=== PATIENT | female | born 1935 | race Caucasian/White ===

== ENCOUNTER 2017-05-04 09:29 | Inpatient (IN) | payer OTHER, BC ==
[2017-04-16 12:25] VITALS: BMI 48.0
--- NOTE | 2017-04-16 13:40 | PAT Medication Instructions ---
Service Date Apr 16, 2017. Current Home Medication List Albuterol Sulf (Proventil 0.083% 2.5MG/3ML), 2.5 MG INH QID PRN for PRN Allopurinol (Zyloprim), 100 MG PO QAM Alprazolam (Xanax), 0.5 MG PO HS Apixaban (Eliquis), 2.5 MG PO BID Aspirin (Aspirin Ec), 81 MG PO QPM Cetirizine (Zyrtec), 10 MG PO QAM Docusate Sodium (Docusate Sodium), 1 CAP PO BID Ergocalciferol (Vitamin D 20544 Unit), 50,000 UNIT PO WK Fluticasone Prop/Salmeterol (Advair Diskus 250/50 60 Dose), 1 PUFF INH QPM Hydrocodone/Acetaminophen 7.5MG/325MG ([place] 7.5MG/325MG), 1 TAB PO BID PRN for Pain Losartan Potassium (Cozaar), 100 MG PO QAM Magnesium Hydroxide (Quinones Milk Of Magnesia), 30 ML PO PRN Magnesium Oxide (Mag-Ox), 400 MG PO BID Meclizine HCl (Meclizine HCl), 1 TAB PO QID PRN for RN Multivitamin (Multivitamin), 1 TAB PO QAM Omeprazole (Prilosec), 20 MG PO PRN [Poly Iron Forte], 1 TAB PO BID Medication Instructions For Your Scheduled Surgery Apixaban (Eliquis), 2.5 MG PO BID (patient will check with family doctor for instructions- let family doctor know medication needs held 3 days in order for spinal anesthesia) Ergocalciferol (Vitamin D 03196 Unit), 50,000 UNIT PO WK (continue as usual on Mondays) Meclizine HCl (Meclizine HCl), 1 TAB PO QID PRN for RN (not taking currently) - Hold the following medications the morning of surgery: Multivitamin (Multivitamin), 1 TAB PO QAM Magnesium Oxide (Mag-Ox), 400 MG PO BID Magnesium Hydroxide (Quinones Milk Of Magnesia), 30 ML PO PRN Losartan Potassium (Cozaar), 100 MG PO QAM Docusate Sodium (Docusate Sodium), 1 CAP PO BID Cetirizine (Zyrtec), 10 MG PO QAM Poly Iron Forte 1 TAB PO BID - Take the following medications the morning of surgery with a sip of water: Omeprazole (Prilosec), 20 MG PO PRN Hydrocodone/Acetaminophen 7.5MG/325MG ([place] 7.5MG/325MG), 1 TAB PO BID PRN for Pain (can take up to four hours prior to surgery if needed) Allopurinol (Zyloprim), 100 MG PO QAM Albuterol Sulf (Proventil 0.083% 2.5MG/3ML), 2.5 MG INH QID PRN for PRN (if needed) - Take the following medications as scheduled the night before surgery: Magnesium Oxide (Mag-Ox), 400 MG PO BID Magnesium Hydroxide (Quinones Milk Of Magnesia), 30 ML PO PRN Hydrocodone/Acetaminophen 7.5MG/325MG ([place] 7.5MG/325MG), 1 TAB PO BID PRN for Pain Fluticasone Prop/Salmeterol (Advair Diskus 250/50 60 Dose), 1 PUFF INH QPM Docusate Sodium (Docusate Sodium), 1 CAP PO BID Aspirin (Aspirin Ec), 81 MG PO QPM Alprazolam (Xanax), 0.5 MG PO HS Albuterol Sulf (Proventil 0.083% 2.5MG/3ML), 2.5 MG INH QID PRN for PRN Poly Iron Forte 1 TAB PO BID If you have any questions please call us at [phone] or [phone] ( Lucy) or [phone]
[2017-04-16 14:42] LABS: BASO % 0.3 %; BASO ABS # 0.03 K/uL (0-0.2); COMPLETE YES; EOS % 4.3 %; HEMATOCRIT 35.8 % (37-47); IG% 0.4 %; LYMPH % 24.3 %; LYMPH ABS # 2.18 K/uL (1.2-3.4); MEAN CORPUSCULAR HGB CONC 30.4 g/dl (32-36); MEAN PLATELET VOLUME 10.2 fL (7.4-10.4); MONO % 6.9 %; NEUT % 63.8 %; PLATELET COUNT 328 K/uL (130-400); RED BLOOD COUNT 3.89 M/uL (4.2-5.4); WHITE BLOOD COUNT 8.97 K/uL (4.8-10.8)
[2017-04-16 14:51] LABS: PARTIAL THROMBOPLASTIN RATIO 1.1; PROTHROMBIN TIME (PATIENT) 10.6 SECONDS (9.0-12.0)
[2017-04-16 15:00] LABS: BUN/CREATININE RATIO 31.7 (10-20); CREATININE 1.5 mg/dl (0.60-1.20); POTASSIUM 5.3 mmol/L (3.5-5.1)
[2017-04-16 15:06] LABS: CALCIUM 10.5 mg/dl (8.5-10.1)
[2017-04-16 15:21] LABS: URINE APPEARANCE CLEAR (CLEAR); URINE BILIRUBIN NEG (NEG); URINE COLOR YELLOW; URINE EPITHELIAL CELL AUTO 20-30 /lpf (0-5); URINE NITRITE NEG (NEG); URINE PH 5.5 (4.5-7.5); URINE SPECIFIC GRAVITY 1.016 (1.000-1.030); UROBILINOGEN NEG (NEG)
[2017-04-16 15:33] LABS: MANUAL MICROSCOPIC REQUIRED? NO; REVIEW REQ? NO
[2017-04-16 15:44] LABS: ESTIMATED AVERAGE GLUCOSE 120 mg/dl; HA1C FLAG Normal (Normal)
--- NOTE | 2017-04-29 11:52 | History and Physical ---
History & Physical Date & Time of Service: Apr 29, 2017 at 11:47 Chief Complaint: Left Knee Osteoarthritis Primary Care Physician: Gadiel Tatum M.D. History of Present Illness Source: patient left knee pain Ms Evans is a 81 year old female who is here for a follow up of left knee pain. She presents with pain, crepitus, swelling, decreased rom, stiffness and weakness on the left side. She states that the symptoms have been chronic non- traumatic. Patient is here today for left ankle wound check and discuss possible left knee TKA. The symptoms occur constantly with intermittent worsening. The problem is worse. Currently the patient states that the symptoms are moderate-severe. The pain is described as aching, discomforting, sharp, shooting and throbbing. The symptoms occur continuously. She rates her current pain as 10/10. The symptoms are aggravated by ascending stairs, daily activities , descending stairs, first steps while awake, movement, repetitive activities, sleeping in any position and walking. [place] states that the symptoms are relieved by no specific activity. In addition to left knee pain the patient is also experiencing decreased mobility, difficulty bending, difficulty going to sleep, nighttime awakening, pain, stiffness, tenderness and weakness. Pertinent negatives include chills and fever. The patient has had a previous x-ray. Prior pain medications include [place] 7.5-325mg. Patient is unable to take NSAIDS d/t being on Eliquis daily. Patient came into with a wheelchair. Past Medical/Surgical History Past Medical History 1. CAD- h/o RI 1998 2. Hypertension 3. h/o PE 4. COPD 5. Sleep Apnea 6. Diabetes 7. GERD 8. Obesity. Past Surgical History 1. Appendectomy 2. Tonsilectomy 3. Right TKA 4. Thyroidectomy 5. Hernia Repair 6. Tubal ligation 7. Hysterectomy Social History Smoking Status: Former Smoker Allergies Coded Allergies: Glimepiride (Unverified Allergy, Unknown, ITCHY, 04/16/17) Home Medications Scheduled Allopurinol (Zyloprim), 100 MG PO QAM Alprazolam (Xanax), 0.5 MG PO HS Apixaban (Eliquis), 2.5 MG PO BID Aspirin (Aspirin Ec), 81 MG PO QPM Cetirizine (Zyrtec), 10 MG PO QAM Docusate Sodium (Docusate Sodium), 1 CAP PO BID Ergocalciferol (Vitamin D 42422 Unit), 50,000 UNIT PO WK Fluticasone Prop/Salmeterol (Advair Diskus 250/50 60 Dose), 1 PUFF INH QPM Losartan Potassium (Cozaar), 100 MG PO QAM Magnesium Hydroxide (Quinones Milk Of Magnesia), 30 ML PO PRN Magnesium Oxide (Mag-Ox), 400 MG PO BID Multivitamin (Multivitamin), 1 TAB PO QAM Omeprazole (Prilosec), 20 MG PO PRN [Poly Iron Forte], 1 TAB PO BID Scheduled PRN Albuterol Sulf (Proventil 0.083% 2.5MG/3ML), 2.5 MG INH QID PRN for PRN Hydrocodone/Acetaminophen 7.5MG/325MG ([place] 7.5MG/325MG), 1 TAB PO BID PRN for Pain Meclizine HCl (Meclizine HCl), 1 TAB PO QID PRN for semiconductor lab technician of Systems Constitutional: No fever, No chills, No sweats, No weight loss, No weakness, No fatigue, No problem reported Eyes: No worsening of vision, No eye pain, No redness, No discharge, No diplopia, No problem reported ENT: No hearing loss, No unusual epistaxis, No nasal symptoms, No sore throat, No tinnitus, No dental problems, No trouble swallowing, No problem reported Respiratory: No cough, No sputum Cardiovascular: No chest pain, No orthopnea, No PND, No edema, No claudication , No palpitations, No problem reported Abdomen: No pain, No nausea, No vomiting, No diarrhea, No constipation, No GI bleeding, No problem reported Physical Exam General Appearance: WD/WN, no apparent distress Head: normocephalic, atraumatic Eyes: normal inspection, PERRL ENT: normal ENT inspection, hearing grossly normal Neck: supple Respiratory/Chest: chest non-tender, lungs clear, normal breath sounds Cardiovascular: regular rate, rhythm, no edema Abdomen/GI: normal bowel sounds, non tender, soft Skin: normal color, warm/dry Left Knee Exam Knee ROM L * Active ROM - Flexion: 110 degrees, Extension: 3 degrees, Factors: normal, Description: active pain free range of motion. Passive ROM - Flexion: 115 degrees, Extension: 3 degrees, Factors: normal, Description: passive pain free range of motion. Knee ROM R * Active ROM - Flexion: 135 degrees, Extension: 0 degrees, Factors: normal, Description: active pain free range of motion. Passive ROM - Flexion: 135 degrees, Extension: 0 degrees, Factors: normal, Description: passive pain free range of motion. Strength LE Normal Strength Description - Normal lower extremity: Bilateral. Knee * Gait: Antalgic. Alignment - Left: varus, Clinical. Ecchymosis - Left: negative. Effusion - Left: mild. Swelling - Left: mild. Flexibility - Left: normal. Maximum tenderness - Left: Medial Joint Line. Patella exam - Crepitation - Left: negative. Patella position - Left: neutral. Tilt - Left: equal. Vanessa's - lateral - Left: Positive. [facility] - medial - Left: Positive. Knee Comments The patient has no calf tenderness. Knee Normal Inspection - Atrophy - Left: Absent. Skin - Left: Normal. Patella exam - Apprehension - Left: Negative. Q-angle - Left: Normal. Sergio's - Left: Negative. Posterior drawer - Left: Negative. Anterior drawer - Left: Negative. Valgus stress - Left: Negative. Varus stress - Left: Negative. Extensor lag - Left: Normal. Neurovascular LE Normal Neurovascular examination including reflexes, sensation , and pulses is within normal limits. Left Knee Xray: Xrays reviewed of the left knee showing findings consistent with degenerative joint disease including joint space narrowing, subchondral sclerosis and peripheral osteophyte formation. no acute bony pathology, overall varus alignment. Impression: degenerative joint disease of the left knee with no acute bony pathology noted. Diagnostics Diagnostic Radiology Xrays reviewed of the left knee showing findings consistent with degenerative joint disease including joint space narrowing, subchondral sclerosis and peripheral osteophyte formation. no acute bony pathology, overall varus alignment. Impression: degenerative joint disease of the left knee with no acute bony pathology noted. Impression Assessment and Plan Left Knee DJD Further care discussed with patient and at this point in time has failed conservative measures and would like to proceed with a left total knee replacement. Plan on discharge will be to consider rehab stay. Patient will have follow up appointment in our office two weeks post op for staple/suture removal and re-evaluation. Patient otherwise has no other questions or concerns. Advanced Directives Existing Living Will: Yes Existing Power of Launderer Hand: Yes
[~2017-05-04] VITALS: Ht 152.4 cm; Wt 112.2 kg
[2017-05-04] VITALS (10 sets, daily range): BP systolic 135–170; BP diastolic 67–86; PULSE 65–100; TEMP 36.4–36.7; O2SAT 93–99; Ht 152.4 cm; Wt 112.2 kg
[2017-05-04] MEDS: TRANEXAMIC ACID INJ 1,000 MG in SODIUM CHLORIDE 0.9% 100ML 100 ML IV SCH ×2 (06:30→10:23)
--- NOTE | 2017-05-04 07:59 | History & Physical Bridge Note ---
H&P Re-Evaluation Bridge Note: I have examined the patient, reviewed the History & Physical and in the interval since the performance of the History & Physical I have noted the following changes of clinical significance: No changes noted
[~2017-05-04 09:29] MED LIST: ACETAMINOPHEN 500 MG TAB PO SCH; ADVIN25/60 INH; ALBINS/ INH; ALLO100T PO; ALPR-411 PO; APIX1TAB PO; ASPI81TA28 PO; BUPIVACAINE 0.25% 30 ML VIAL ONE; BUPIVACAINE 0.5 % 5 MG/1 ML PF 10ML VIAL ONE; CEFAZOLIN 2000 MG/60 ML D5W 60 ML IV SCH; CETI10TA84 PO; CeleBREX 200 MG CAP PO SCH; DEXAMETHASONE 4 MG TAB PO SCH; DOCU100C31 PO; ERGO500037 PO; FAMOTIDINE 20 MG TAB PO SCH; FENTANYL CITRATE INJ 50 MCG/1 ML 2 ML VIAL ONE; GABAPENTIN 300 MG CAP PO SCH; HYDR-3983 PO; LACTATED RINGER'S 1000ML 1,000 ML IV SCH; LOSA100T65 PO; MAGN400T6 PO; MAGNSUS PO; MECL1TAB40 PO; METOCLOPRAMIDE HCL 10 MG TAB PO SCH; MIDAZOLAM HCL 1 MG/ML 2ML VIAL ONE; MULT-506 PO; POLY IRON FORTE PO; PRLSR20 PO; ROPIVACAINE 5MG/ML 30 ML 150 MG, BUPIVACAINE/EPINEPHR 0.5% MPF 30 ML, KETOROLAC TROMETH... INFIL SCH
[2017-05-04] MEDS ORDERED: LACTATED RINGER'S 1000ML 1,000 ML IV PRN (09:55)
[2017-05-04] MEDS ORDERED: FENTANYL CITRATE INJ 50 MCG/1 ML 2 ML VIAL IV PRN (10:00)
[2017-05-04] MEDS ORDERED: ONDANSETRON INJ 2 MG/ML 2 ML VIAL IV PRN ×2 (10:00→12:30)
[2017-05-04] MEDS ORDERED: ORTHO JOINT ANESTHETIC ONE (10:06)
[2017-05-04] MEDS ORDERED: BACITRACIN 50000 UNIT VIAL ONE (10:06)
[2017-05-04] MEDS ORDERED: POVIDONE-IODINE OP SOLN 30 ML BTL ONE (10:06)
[2017-05-04] MEDS ORDERED: EpHEDrine SULFATE 50MG/5ML SYR ONE (11:10)
--- NOTE | 2017-05-04 11:45 | [facility] Post Operative Brief Note ---
Immediate Operative Summary Operative Date May 04, 2017. Pre-Operative Diagnosis Left knee degenerative joint disease Post-Operative Diagnosis Left knee degenerative joint disease Procedure(s) Performed Left total knee arthroplasty Surgeon Dr. Yadav Manager Coding Surgeon(s) Tobias Sumner PA-C Estimated Blood Loss 5cc Findings severe djd lt knee Specimens A. Left knee bone and tissue Complication(s) None Disposition Recovery Room / PACU
--- NOTE | 2017-05-04 11:58 | OPERATIVE REPORT ---
DATE OF OPERATION: 05/04/2017 PREOPERATIVE DIAGNOSIS: Severe end-stage tricompartmental degenerative joint disease, left knee. POSTOPERATIVE DIAGNOSIS: Severe end-stage tricompartmental degenerative joint disease, left knee. PROCEDURE: Left total knee arthroplasty utilizing Isidro & Nephew Journey II patient-matched total knee arthroplasty, size 4 femur, 3 tibia, 15 constrained poly, 29 oval patella. SURGEON: Dr. Yadav. AERIAL PHOTOGRAPH INTERPRETER: NOEMI Gil, who was necessary for prepping, draping, retraction, wound closure of deep fascia, subcu and skin, and was necessary for the case. ESTIMATED BLOOD LOSS: 5 mL COMPLICATIONS: None. TOURNIQUET TIME: 45 minutes. HISTORY: The patient presents as a pleasant 81-year-old white female with complaints of severe end-stage DJD about her left knee. She has previously undergone right total knee arthroplasty. She presents with severe endstage DJD and varus alignment of her left knee for left total knee arthroplasty. Thorough discussion regarding risks and complications was undertaken. The patient elects to proceed forward with left total knee arthroplasty after failing all other attempts at conservative management including injections, bracing, anti-inflammatories, and therapy. OPERATION AND FINDINGS: PROCEDURE: The patient was properly prepped and draped in supine position for total knee arthroplasty after identifying the appropriate surgical site. An anterior midline incision was made through the subcutaneous tissues down to the region of the extensor mechanism. A medial parapatellar incision was subsequently made. Meticulous hemostasis was obtained and performed at all times. The patella having been subluxed lateralward, medial and lateral meniscal remnants were excised. The patellar cut was then initially made and was sized to the appropriate size. After subluxing the tibia forward the appropriate meniscal fragments having been removed the distal femur was then cut first utilizing a Isidro and Nephew block. The distal femoral cuts and chamfer cuts were all made under direct visualization and the proximal tibial osteotomy cut was also made utilizing Isidro and Nephew blocks and checked with an extramedullary guide. The appropriate trial components on the femur and tibia were placed. Appropriate trial spacers were used to check flexion and extension gaps. With flexion and extension gaps being equal, the components were then subsequently after thorough irrigation and debridement lavage components were then subsequently cemented in the following order: femur, tibia and patella. Exparel was used for intraoperative anesthesia, the medial parapatellar incision was closed utilizing #1 Vicryl, subQ was closed with 2-0 Vicryl, skin was closed with skin clips. A sterile compression dressing was placed. The patient was taken to recovery room in stable condition. Due to the complex nature of the procedure, the entire surgery was performed with the operational assistance of NOEMI Gil. The assistant sales center manager, under direct supervision, was involved in the actual performance of all aspects of the surgical procedure including hemostasis, tissue retraction and incision, instrument management, patient positioning, and wound closure. GURWINDER
[2017-05-04] MEDS ORDERED: SODIUM CHLORIDE 0.9% 1000ML 1,000 ML IV SCH (12:26)
[2017-05-04] MEDS ORDERED: ALBUTEROL 0.083% NEBU SOLN 3 ML VIAL INH PRN (12:30)
[2017-05-04] MEDS ORDERED: MoRPHine SULFATE 2 MG/ML CARP IV PRN (12:30)
[2017-05-04] MEDS ORDERED: MAGNESIUM HYDROXIDE SUSP 30 ML UDC PO PRN (12:30)
[2017-05-04] MEDS ORDERED: BISACODYL 10 MG SUPP PR PRN (12:30)
[2017-05-04] MEDS ORDERED: ALUMINUM/MAGNESIUM/SIMETH (MAALOX MAX) 30 ML UDC PO PRN (12:30)
--- NOTE | 2017-05-04 13:06 | DIAGNOSTIC IMAGING REPORT ---
LEFT KNEE 1 OR 2 VIEWS ROUTINE CLINICAL HISTORY: AP/LATERAL IN PACU LEFT KNEE COMPARISON: None. DISCUSSION: Total left knee replacement. Good contact between prosthetic and underlying bone. Surgical drains are in position. There is no evidence for soft tissue swelling. IMPRESSION: Anatomic alignment status post total left knee replacement. Electronically signed by: Jesus Arias M.D. 05/04/2017 1:05 PM Dictated Date/Time: 05/04/2017 1:04 PM
--- NOTE | 2017-05-04 13:13 | Anesthesiology Progress Note ---
Anesthesia Post Op Note Date & Time May 04, 2017 at 13:13 Vital Signs Pain Intensity: 0 Vital Signs Past 12 Hours Date Time Temp Pulse Resp B/P (MAP) Pulse Ox O2 Delivery O2 Flow Rate FiO2 05/04/17 13:05 65 14 120/53 97 Nasal Cannula 3 05/04/17 12:55 36.4 68 16 114/57 98 Nasal Cannula 3 05/04/17 12:45 57 12 112/56 98 Mask 5 05/04/17 12:35 53 16 112/47 100 Mask 8 05/04/17 12:25 36.2 70 16 130/38 98 Mask 8 05/04/17 09:55 36.7 100 20 168/71 93 Room Air Notes Mental Status: alert / awake / arousable, participated in evaluation Pt Amnestic to Procedure: Yes Nausea / Vomiting: adequately controlled Pain: adequately controlled Airway Patency, RR, SpO2: stable & adequate BP & HR: stable & adequate Hydration State: stable & adequate Neuraxial Anesthesia: was administered, sensory block is resolving Anesthetic Complications: no major complications apparent
[2017-05-04] MEDS: ACETAMINOPHEN 500 MG TAB PO SCH ×2 (15:40→21:23)
[2017-05-04] MEDS ORDERED: NURSING VERBAL MED ORDER ONE (16:15)
[2017-05-04] MEDS: FERROUS GLUCONATE 324 MG TAB PO SCH (17:45)
[2017-05-04] MEDS: CEFAZOLIN IV 2,000 MG in DEXTROSE 5% 50ML 50 ML IV SCH (18:25)
[2017-05-04] MEDS: OXYCODONE HCL IR 5 MG TAB (IMMEDIATE RELEASE) PO PRN ×2 (19:27→23:29)
--- NOTE | 2017-05-04 20:50 | INTERNAL MEDICINE CONSULTATION ---
DATE OF CONSULTATION: 05/04/2017 REASON FOR CONSULTATION: Management co-care status post left knee arthroplasty. HISTORY OF PRESENT ILLNESS: The patient is an 81-year-old female with severe degenerative disease, failed outpatient conservative measures and came to the hospital for an elective left knee arthroplasty. The procedure went uneventful and the patient currently is doing well. We were consulted for medical co-care. PAST MEDICAL HISTORY: 1. History of pulmonary embolus. 2. Diabetes mellitus. 3. Severe arthritis. 4. Coronary artery disease status post RI in 1998. 5. Hypertension. 6. COPD. 7. Sleep apnea. 8. GERD. 9. Morbid obesity. PAST SURGICAL HISTORY: 1. Appendectomy. 2. Tonsillectomy. 3. Right knee total knee arthroplasty. 4. Thyroidectomy 5. Hernia repair. 6. Tubal ligation. 7. Hysterectomy. SOCIAL HISTORY: The patient is a former smoker. Currently, lives with her , does not smoke or drink. ALLERGIES: ALLERGY TO GLIMIPERIDE. HOME MEDICATIONS: Reviewed. REVIEW OF SYSTEMS: Denies any headache, double vision, blurry vision. Denies any chest pain or palpitation. Denies any cough, wheezing, shortness of breath. Denies any diarrhea, blood in stool. Denies any burning sensation in the urine or blood. Denies any focal weakness, tingling, numbness. Rest of the review of system is negative. LABORATORY DATA: White blood cell count 8.9, hemoglobin 10.9, platelet count is 328. Sodium 143, potassium 5.3, chloride 109, BUN is 48, creatinine 1.5. Urine showed 5-10 white blood cells and epithelial cells were 20-30. PHYSICAL EXAMINATION: GENERAL: Morbidly obese, not in acute distress. VITAL SIGNS: Temperature 36.5, heart rate 87, respirations 18, blood pressure 170/71, saturation 98% on 2 liters. HEENT: No jaundice, no pallor. Wet mucous membranes. NECK: Supple. HEART: S1, S2 normal. No gallop, rub or murmur. LUNGS: Clear to auscultation bilaterally. Normal chest wall expansion. ABDOMEN: Soft, nontender, nondistended. NEUROLOGIC: Awake, alert, oriented to time, place, and person. Moves all extremities. Sensation is intact. Cranial nerves II-XII appears to be intact. ASSESSMENT AND PLAN: 1. Severe arthritis status post left knee arthroplasty, went uneventful. 2. Diabetes mellitus. 3. Obstructive sleep apnea. 4. Coronary artery disease status post myocardial infarction in 1998. 5. Hypertension, poorly controlled. 6. Elevated creatinine and baseline is unknown, possible acute kidney injury. 7. Borderline elevated potassium. PLAN: 1. The patient's hemoglobin A1c is 5.8, so more or less her diabetes is under control. 2. A One dose of Kayexalate. Continue IV fluid hydration. Repeat renal function in a.m. 3. If blood pressure remains elevated, we will consider adjusting blood pressure medications. Right now it could be elevated secondary to pain and anxiety. 4. The patient was supposed to be on Eliquis for pulmonary embolism. We will defer that to the primary team whenever it is safe to reinitiate Eliquis. 5. Incentive spirometer. 6. PT and OT as per primary team.
[2017-05-04] MEDS: SENNA 8.6 MG TAB PO SCH (21:00)
[2017-05-04] MEDS: FLUTICASONE/SALMETEROL 250/50 (ADVAIR) 14 PUFF/1 INHALER INH SCH (21:16)
[2017-05-04] MEDS: SODIUM CHLORIDE 0.9% 1000ML 1,000 ML IV SCH (21:16)
[2017-05-04] MEDS: DOCUSATE SODIUM 100 MG CAP PO SCH (21:18)
[2017-05-04] MEDS: ASPIRIN 81 MG ECTAB PO SCH (21:18)
[2017-05-04] MEDS: MAGNESIUM OXIDE 400 MG TAB PO SCH (21:19)
[2017-05-04] MEDS: ALPRAZOLAM 0.5 MG TAB PO SCH (21:26)
[2017-05-05] VITALS (9 sets, daily range): BP systolic 143–195; BP diastolic 63–81; PULSE 55–78; TEMP 36.4–37.1; O2SAT 92–96
[2017-05-05] MEDS: CEFAZOLIN IV 2,000 MG in DEXTROSE 5% 50ML 50 ML IV SCH (02:11)
[2017-05-05 05:46] LABS: COMPLETE YES; HEMATOCRIT 30.3 % (37-47); IG% 0.3 %; LYMPH % 6.3 %; LYMPH ABS # 0.74 K/uL (1.2-3.4); MEAN CELL VOLUME 91.8 fL (80-100); MEAN CORPUSCULAR HEMOGLOBIN 28.2 pg (25-34); MEAN CORPUSCULAR HGB CONC 30.7 g/dl (32-36); MEAN PLATELET VOLUME 10.2 fL (7.4-10.4); MONO % 4.9 %; NEUT % 88.5 %; PLATELET COUNT 234 K/uL (130-400); WHITE BLOOD COUNT 11.77 K/uL (4.8-10.8)
[2017-05-05] MEDS: ACETAMINOPHEN 500 MG TAB PO SCH ×3 (06:02→21:33)
[2017-05-05 06:15] LABS: BUN/CREATININE RATIO 32.5 (10-20); CALCIUM 8.8 mg/dl (8.5-10.1); CREATININE 1.7 mg/dl (0.60-1.20); MAGNESIUM 2.5 mg/dl (1.8-2.4); POTASSIUM 5.1 mmol/L (3.5-5.1)
[2017-05-05 06:18] LABS: ALB/GLOB RATIO 0.8 (0.9-2); PHOSPHORUS 2.9 mg/dl (2.5-4.9)
--- NOTE | 2017-05-05 07:44 | Orthopedic Progress Note ---
Orthopedic Progress Note Date of Service May 05, 2017. Subjective Post OP Day: 1 Reports: feeling well, Denies: chest pain, SOB, nausea / vomiting, light headedness, calf pain Additional Notes: Pt had somewhat of a "rough night". Unable to sleep. Pain controlled currently. Hoping to go to [facility] swing bed upon discharge. No other complaints. Objective calves soft nontender, N/V intact, dressing C/D/I (Prevena intact), A&O x3, toes mobile Date Time Temp Pulse Resp B/P (MAP) Pulse Ox O2 Delivery O2 Flow Rate FiO2 05/05/17 03:04 36.6 62 18 143/63 (89) 96 Room Air 05/04/17 23:15 Nasal Cannula 2.0 05/04/17 22:50 36.6 76 18 159/68 (98) 95 Nasal Cannula 2.0 05/04/17 22:21 156/79 (104) 05/04/17 21:13 95 Nasal Cannula 2.0 05/04/17 19:30 36.5 87 18 170/71 (104) 98 Nasal Cannula 2.0 05/04/17 16:32 36.4 76 16 165/82 (109) 96 Nasal Cannula 2.0 05/04/17 16:00 Nasal Cannula 3.0 05/04/17 15:35 36.7 82 18 148/67 (94) 97 Nasal Cannula 2.0 05/04/17 14:15 65 18 135/75 (95) 99 Nasal Cannula 2.0 05/04/17 13:45 76 17 145/86 (105) 97 Nasal Cannula 2.0 05/04/17 13:15 95 Nasal Cannula 3.0 05/04/17 13:15 36.5 81 18 146/74 (98) 95 Nasal Cannula 3.0 05/04/17 13:05 65 14 120/53 97 Nasal Cannula 3 05/04/17 12:55 36.4 68 16 114/57 98 Nasal Cannula 3 05/04/17 12:45 57 12 112/56 98 Mask 5 05/04/17 12:35 53 16 112/47 100 Mask 8 05/04/17 12:25 36.2 70 16 130/38 98 Mask 8 05/04/17 09:55 36.7 100 20 168/71 93 Room Air Laboratory Results 24 Hours: Test 05/05/17 05:33 White Blood Count 11.77 K/uL Red Blood Count 3.30 M/uL Hemoglobin 9.3 g/dL Hematocrit 30.3 % Mean Corpuscular Volume 91.8 fL Mean Corpuscular Hemoglobin 28.2 pg Mean Corpuscular Hemoglobin Concent 30.7 g/dl Platelet Count 234 K/uL Mean Platelet Volume 10.2 fL Neutrophils (%) (Auto) 88.5 % Lymphocytes (%) (Auto) 6.3 % Monocytes (%) (Auto) 4.9 % Eosinophils (%) (Auto) 0.0 % Basophils (%) (Auto) 0.0 % Neutrophils # (Auto) 10.41 K/uL Lymphocytes # (Auto) 0.74 K/uL Monocytes # (Auto) 0.58 K/uL Eosinophils # (Auto) 0.00 K/uL Basophils # (Auto) 0.00 K/uL Assessment & Plan Assessment: POD 1 s/p Left TKA Slight increase in BUN/Creat - as per Med Service. 1. History of pulmonary embolus. 2. Diabetes mellitus. 3. Severe arthritis. 4. Coronary artery disease status post DC in 1998. 5. Hypertension. 6. COPD. 7. Sleep apnea. 8. GERD. 9. Morbid obesity. Plan: PT/OT Planning for swing bed at [facility] upon DC DVT Prophylaxis - Restart Eliquis tomorrow. Will give one dose of Lovenox this AM. BID ASA until Eliquis starts tomorrow, the once daily. Inhouse Planning Pain Management: Ultram, Morphine, PO Tylenol, Oxy IR DVT Prophylaxis: TEDs, SCDs, ASA, Lovenox Discharge Planning Discharge Planning: rehab hospital Pain Management: PO Tylenol, Oxy IR DVT Prophylaxis: TEDs, ASA, other (Eliquis) Therapy: Physical Therapy
[2017-05-05] MEDS ORDERED: ENOXAPARIN 40 MG/0.4 ML SYR SQ ONE (09:00)
[2017-05-05] MEDS: PANTOprazole SOD 40 MG TAB PO SCH (09:00)
[2017-05-05] MEDS ORDERED: LOSARTAN POTASSIUM 50 MG TAB PO SCH (09:00)
[2017-05-05] MEDS ORDERED: MULTIVITAMIN TAB PO SCH (09:00)
[2017-05-05] MEDS: ALLOPURINOL 100 MG TAB PO SCH (09:26)
[2017-05-05] MEDS: ASPIRIN 81 MG ECTAB PO SCH ×2 (09:26→20:51)
[2017-05-05] MEDS: CETIRIZINE HCL 10 MG TAB PO SCH (09:26)
[2017-05-05] MEDS: MULTIVITAMIN TAB PO SCH (09:27)
[2017-05-05] MEDS: MAGNESIUM OXIDE 400 MG TAB PO SCH ×2 (09:27→20:51)
[2017-05-05] MEDS: FERROUS GLUCONATE 324 MG TAB PO SCH ×3 (09:27→18:21)
[2017-05-05] MEDS: DOCUSATE SODIUM 100 MG CAP PO SCH ×2 (09:27→20:49)
[2017-05-05] MEDS: OXYCODONE HCL IR 5 MG TAB (IMMEDIATE RELEASE) PO PRN ×3 (09:37→20:49)
--- NOTE | 2017-05-05 11:42 | Discharge Instructions ---
Discharge Instructions Date of Service May 05, 2017. Admission Reason for Admission: Left Knee Osteoarthritis Discharge Discharge Diagnosis / Problem: left Total Knee Replacement Discharge Goals Goal(s): Decrease discomfort, Improve function, Increase independence Activity Recommendations Activity Level: Up Ad Ana Therapies: Physical Therapy (TKA protocol) Weightbearing Status: Left weightbearing (as tolerated) . Additional Information Patient informed of condition: Yes Advance Directives: No DNR: No Level of Care: Acute Rehab Communicable Disease: No Prognosis: Stable Faith Catheter: No Current Hospital Diet Patient's current hospital diet: Diabetes Type 2 Diet Discharge Diet Recommended Diet: Diabetes Type 2 Diet Procedures Procedures Performed: Left total knee arthroplasty Pending Studies Studies pending at discharge: no Physician Orders On Transfer Dressing Changes: Prevena- This is a large suction dressing covering your incision. This will help pull any excess drainage from the wound and allow your incision to heal properly. You may shower with this if you can keep the unit outside of the shower. If any bleeding or leakage is noted please call your doctor's office. This will remain on your incision for 7 days and then should be removed. This can be done yourself or by the home nursing staff if applicable. The entire unit is disposable once removed. Once removed, keep incision clean and dry. If redness or drainage is noted, please call your surgeon. Laboratory Results Hemoglobin A1c Test 04/16/17 13:48 Range/Units Estimated Average Glucose 120 mg/dl Hemoglobin A1c 5.8 H 4.5-5.6 % Medical Emergencies . Who to Call and When: Medical Emergencies: If at any time you feel your situation is an emergency, please call 911 immediately. . Non-Emergent Contact Non-Emergency issues call your: Primary Care Provider, Surgeon . . "Provider Documentation" section prepared by Jesus Flores. . Core Measure Problem Core Measures: None [place] Drug Monitoring Program Search Results: patient reviewed within database, see additional documentation (it was noted that patient has received pain medications from another provider in the past, discussed only obtaining medications from [facility] for the next 90 days. )
[2017-05-05] MEDS ORDERED: HydrALAZINE HCL 20 MG/ML VIAL IV. PRN (15:00)
--- NOTE | 2017-05-05 15:07 | Hospitalist Progress Note ---
Hospitalist Progress Note Date of Service May 05, 2017. (Poppy Bates ., PA-C) Subjective Pt evaluation today including: conversation w/ patient, physical exam, chart review, lab review, review of inpatient medication list Pain: Controlled with PO meds PO Intake: Tolerating PO diet Voiding: no voiding problems Patient reports feeling well postoperatively. She states that her knee pain is controlled with oral medications. She's been tolerating an oral diet without any difficulties. She is urinating without difficulties and had a bowel movement earlier this morning. She is passing gas. She admits to a productive cough, which she had prior to arrival, and states that she is recovering from bronchitis. She also complains of dyspnea on exertion, which is chronic for her. The patient denies fevers, chills, sweats, chest pain, palpitations, claudication, wheezing, shortness of breath, nausea, vomiting, abdominal pain, dysuria, hematuria, urinary retention, paralysis, weakness, numbness and tingling. Additional Comments: See HPI for pertinent positives and negatives. All other systems reviewed and negative. (Poppy Bates ., PA-C) Objective Vital Signs Date Time Temp Pulse Resp B/P (MAP) Pulse Ox O2 Delivery O2 Flow Rate FiO2 05/05/17 11:35 36.7 73 14 148/72 (97) 94 Room Air 05/05/17 08:58 95 Nasal Cannula 2.0 05/05/17 08:34 Room Air Nasal Cannula 05/05/17 08:06 36.4 55 16 168/72 (104) 95 Room Air 05/05/17 03:04 36.6 62 18 143/63 (89) 96 Room Air 05/04/17 23:15 Nasal Cannula 2.0 05/04/17 22:50 36.6 76 18 159/68 (98) 95 Nasal Cannula 2.0 05/04/17 22:21 156/79 (104) 05/04/17 21:13 95 Nasal Cannula 2.0 05/04/17 19:30 36.5 87 18 170/71 (104) 98 Nasal Cannula 2.0 05/04/17 16:32 36.4 76 16 165/82 (109) 96 Nasal Cannula 2.0 05/04/17 16:00 Nasal Cannula 3.0 05/04/17 15:35 36.7 82 18 148/67 (94) 97 Nasal Cannula 2.0 (Poppy Bates ., PA-C) Physical Exam Notes: General appearance: +Morbidly obese. Well-developed, well-nourished, no apparent distress Head: Normocephalic, atraumatic Eyes: Normal inspection, PERRL, EOMI ENT: Normal ENT inspection, hearing grossly normal, pharynx normal Neck: Supple, no JVD, trachea midline Respiratory/Chest: Lungs clear to auscultation, normal breath sounds, no respiratory distress Cardiovascular: Regular rate & rhythm, no gallop, no murmur Abdomen/GI: +Healing surgical incision LLQ from previous hernia repair. Mild epigastric tenderness and area near incision TTP. Normal bowel sounds, non- tender, soft Extremities/Musculoskeletal: Normal inspection, no calf tenderness, no pedal edema Neurological/Psych: Alert, normal mood/affect, oriented x 3 Skin: Normal color, warm/dry, no rash (Poppy Bates ., PA-C) Laboratory Results Last 24 Hours Test 05/05/17 05:33 White Blood Count 11.77 K/uL Red Blood Count 3.30 M/uL Hemoglobin 9.3 g/dL Hematocrit 30.3 % Mean Corpuscular Volume 91.8 fL Mean Corpuscular Hemoglobin 28.2 pg Mean Corpuscular Hemoglobin Concent 30.7 g/dl Platelet Count 234 K/uL Mean Platelet Volume 10.2 fL Neutrophils (%) (Auto) 88.5 % Lymphocytes (%) (Auto) 6.3 % Monocytes (%) (Auto) 4.9 % Eosinophils (%) (Auto) 0.0 % Basophils (%) (Auto) 0.0 % Neutrophils # (Auto) 10.41 K/uL Lymphocytes # (Auto) 0.74 K/uL Monocytes # (Auto) 0.58 K/uL Eosinophils # (Auto) 0.00 K/uL Basophils # (Auto) 0.00 K/uL RDW Standard Deviation 51.3 fL RDW Coefficient of Variation 15.2 % Immature Granulocyte % (Auto) 0.3 % Immature Granulocyte # (Auto) 0.04 K/uL Sodium Level 143 mmol/L Potassium Level 5.1 mmol/L Chloride Level 113 mmol/L Carbon Dioxide Level 24 mmol/L Anion Gap 6.0 mmol/L Blood Urea Nitrogen 55 mg/dl Creatinine 1.70 mg/dl Est Creatinine Clear Calc Drug Dose 29.6 ml/min Estimated GFR () 32.2 Estimated GFR (Non- 27.8 BUN/Creatinine Ratio 32.5 Random Glucose 147 mg/dl Lactic Acid Level 1.4 mmol/L Calcium Level 8.8 mg/dl Phosphorus Level 2.9 mg/dl Magnesium Level 2.5 mg/dl Total Bilirubin 0.1 mg/dl Aspartate Amino Transf (AST/SGOT) 11 U/L Alanine Aminotransferase (ALT/SGPT) 14 U/L Alkaline Phosphatase 87 U/L Total Protein 6.5 gm/dl Albumin 2.8 gm/dl Globulin 3.7 gm/dl Albumin/Globulin Ratio 0.8 (Poppy Bates PA-C) Assessment and Plan 81 y/o female with a history of CAD, [place] in 1998, HTN, h/o PE, COPD, sleep apnea , DM II, gout and GERD who presents s/p left TKA with Dr. Yadav on 05/04 for medical management. -Pain management, DVT prophylaxis, and PT/OT as per primary team -POD #1 Hyperkalemia--improving -Potassium 5.3 on pre-op labs -Potassium 5.1 on 05/05 -Placed on low potassium diet, continue to monitor ?KARL--unknown baseline creatinine -Creatinine 1.5 on pre op labs -Creatinine 1.7 on 05/05 -Hold losartan for now CAD, [place] 1998 -Continue ASA when okay with primary team HTN--stable -Hold losartan -Cover with hydralazine 10 mg IV q6h prn SBP >180 H/o PE -Resume Eliquis when okay with primary team COPD -Continue Advair qd DM II, controlled w/o meds--HgbA1c on 04/16/17 was 5.8 -Diet controlled, BSGs controlled here Gout -Continue allopurinol 100 mg PO qd Code Status -Level I, FULL RESUSCITATION STATUS Thank you for this consultation. We will continue to follow. (Poppy Bates, BRYANC) Reviewed: Pt Seen/Exam by Me (Amna Mann MD) History Physician Printing Press Machinist Supervision Note: I interviewed and examined the patient. Discussed with NOEMI Bates and agree with findings and plan as documented in the note. Any exceptions or clarifications are listed here: Pt feeling well, eating dinner. Denies CP or SOB over her usual LANZA VSS, NAD, morbidly obese RRR no mgr CTAB no wcr ABd +BS soft obese NT ND Ext: left knee in SABI wrap, able to dorsi and plantarflex left foot, no edema rt leg Skin no rashes 81 yo female with Left TKA and other chronic conditoins. -LAVERNE-ordered CPAP for here-she has had outpt sleep study and CPAP titration but is still awaiting delivery of home machine. -starting Eliquis tomorrow AM for DVT proph and h/o clotting disorder and PE -tomorrow will decrease bid ASA back to once daily Documented By: Amna Mann (Amna Mann MD)
[2017-05-05] MEDS: SODIUM CHLORIDE 0.9% 1000ML 1,000 ML IV SCH (16:05)
[2017-05-05] MEDS: ALPRAZOLAM 0.5 MG TAB PO SCH (20:46)
[2017-05-05] MEDS: SENNA 8.6 MG TAB PO SCH (20:49)
[2017-05-05] MEDS: FLUTICASONE/SALMETEROL 250/50 (ADVAIR) 14 PUFF/1 INHALER INH SCH (20:51)
[2017-05-05] MEDS: TRAMADOL HCL 50 MG TAB PO PRN (21:57)
[2017-05-06] MEDS: OXYCODONE HCL IR 5 MG TAB (IMMEDIATE RELEASE) PO PRN ×4 (03:42→21:24)
[2017-05-06] MEDS: ACETAMINOPHEN 500 MG TAB PO SCH ×3 (05:23→21:27)
[2017-05-06 06:07] LABS: HEMATOCRIT 29.1 % (37-47); MEAN CELL VOLUME 92.4 fL (80-100); MEAN CORPUSCULAR HEMOGLOBIN 28.3 pg (25-34); MEAN CORPUSCULAR HGB CONC 30.6 g/dl (32-36); MEAN PLATELET VOLUME 10.3 fL (7.4-10.4); PLATELET COUNT 229 K/uL (130-400); RED BLOOD COUNT 3.15 M/uL (4.2-5.4); WHITE BLOOD COUNT 9.76 K/uL (4.8-10.8)
[2017-05-06 07:02] LABS: BUN/CREATININE RATIO 29.7 (10-20); CALCIUM 8.9 mg/dl (8.5-10.1); CREATININE 1.7 mg/dl (0.60-1.20); POTASSIUM 4.9 mmol/L (3.5-5.1)
--- NOTE | 2017-05-06 07:37 | Orthopedic Progress Note ---
Orthopedic Progress Note Date of Service May 06, 2017. Subjective Post OP Day: 2 Reports: feeling well, pain controlled w PO medications, Denies: complaints, chest pain, SOB, nausea / vomiting, light headedness, calf pain Objective calves soft nontender, N/V intact, capillary refill less than 2 sec., dressing C /D/I (prevena in place), A&O x3, toes mobile Date Time Temp Pulse Resp B/P (MAP) Pulse Ox O2 Delivery O2 Flow Rate FiO2 05/05/17 23:31 Room Air 05/05/17 23:12 37.1 78 16 153/75 (101) 95 Nasal Cannula 2.0 05/05/17 17:00 74 156/81 (106) 05/05/17 15:36 163/69 (100) 05/05/17 15:33 36.7 73 20 195/66 (109) 92 Room Air 05/05/17 15:15 Room Air 05/05/17 14:47 77 96 05/05/17 11:35 36.7 73 14 148/72 (97) 94 Room Air 05/05/17 08:58 95 Nasal Cannula 2.0 05/05/17 08:34 Room Air Nasal Cannula 05/05/17 08:06 36.4 55 16 168/72 (104) 95 Room Air Laboratory Results 24 Hours: Test 05/06/17 05:40 Hematocrit 29.1 % Hemoglobin 8.9 g/dL Assessment & Plan Assessment: POD 2 s/p Left TKA h/o CAD, [place] in 1998 HTN h/o PE- Eliquis, ASA 81mg daily COPD Sleep Apnea DM T2 Gout GERD Plan: PT/OT Planning for swing bed at [facility] upon DC DVT Prophylaxis - Restart Eliquis tomorrow. Will give one dose of Lovenox this AM. BID ASA until Eliquis starts tomorrow, the once daily. Discharge Planning Discharge Planning: rehab hospital Pain Management: PO Tylenol, Oxy IR DVT Prophylaxis: TEDs, ASA, other (Eliquis) Therapy: Physical Therapy
[2017-05-06 08:00] VITALS: BP 158/74; PULSE 83; TEMP 36.4; O2SAT 92
[2017-05-06] MEDS: MAGNESIUM OXIDE 400 MG TAB PO SCH ×2 (08:26→21:25)
[2017-05-06] MEDS: FERROUS GLUCONATE 324 MG TAB PO SCH ×3 (08:26→18:21)
[2017-05-06] MEDS: DOCUSATE SODIUM 100 MG CAP PO SCH ×2 (08:26→21:24)
[2017-05-06] MEDS: ALLOPURINOL 100 MG TAB PO SCH (08:27)
[2017-05-06] MEDS: APIXABAN 2.5 MG TAB PO SCH ×2 (08:27→21:26)
[2017-05-06] MEDS: MULTIVITAMIN TAB PO SCH (08:28)
[2017-05-06] MEDS: CETIRIZINE HCL 10 MG TAB PO SCH (08:28)
[2017-05-06] MEDS: PANTOprazole SOD 40 MG TAB PO SCH (08:29)
[2017-05-06 08:58] VITALS: O2SAT 92
--- NOTE | 2017-05-06 10:48 | Hospitalist Progress Note ---
Hospitalist Progress Note Date of Service May 06, 2017. (Poppy Herzog ., NOEMI-C) Subjective Pt evaluation today including: conversation w/ patient, physical exam, chart review, lab review, review of inpatient medication list Pain: Managed with PO meds PO Intake: Tolerating PO meds Voiding: no voiding problems Patient states she is feeling well. Her left knee is somewhat sore now as she just finished physical therapy. She denies any chest pain, worsening SOB or dizziness during PT. She complains of dyspnea on exertion but states this is normal for her, and this is no worse than usual. She still complains of a productive cough, which she had prior to arrival and has been worked up by her PCP and thought to be related to allergies. The patient denies fevers, chills, sweats, chest pain, palpitations, claudication, wheezing, shortness of breath at rest, nausea, vomiting, abdominal pain, dysuria, hematuria, urinary retention , paralysis, weakness, numbness and tingling. Additional Comments: See HPI for pertinent positives and negatives. All other systems reviewed and negative. (Poppy Herzog ., NOEMI-C) Objective Vital Signs Date Time Temp Pulse Resp B/P (MAP) Pulse Ox O2 Delivery O2 Flow Rate FiO2 05/06/17 08:58 92 Room Air 05/06/17 08:30 Room Air 05/06/17 08:00 36.4 83 18 158/74 (102) 92 Room Air 05/05/17 23:31 Room Air 05/05/17 23:12 37.1 78 16 153/75 (101) 95 Nasal Cannula 2.0 05/05/17 17:00 74 156/81 (106) 05/05/17 15:36 163/69 (100) 05/05/17 15:33 36.7 73 20 195/66 (109) 92 Room Air 05/05/17 15:15 Room Air 05/05/17 14:47 77 96 05/05/17 11:35 36.7 73 14 148/72 (97) 94 Room Air (Poppy Herzog ., NOEMI-C) Physical Exam Notes: General appearance: +Morbidly obese. Well-developed, well-nourished, no apparent distress Head: Normocephalic, atraumatic Eyes: Normal inspection, PERRL, EOMI ENT: Normal ENT inspection, hearing grossly normal, pharynx normal Neck: Supple, no JVD, trachea midline Respiratory/Chest: Lungs clear to auscultation, normal breath sounds, no respiratory distress Cardiovascular: Regular rate & rhythm, no gallop, no murmur Abdomen/GI: +Healing surgical incision LLQ from previous hernia repair. Mild epigastric tenderness and area near incision TTP. Normal bowel sounds, non- tender, soft Extremities/Musculoskeletal: +L knee with wound vac. Normal inspection, no calf tenderness, no pedal edema Neurological/Psych: Alert, normal mood/affect, oriented x 3 Skin: Normal color, warm/dry, no rash (Poppy Herzog ., PA-C) Laboratory Results Last 24 Hours Test 05/06/17 05:40 White Blood Count 9.76 K/uL Red Blood Count 3.15 M/uL Hemoglobin 8.9 g/dL Hematocrit 29.1 % Mean Corpuscular Volume 92.4 fL Mean Corpuscular Hemoglobin 28.3 pg Mean Corpuscular Hemoglobin Concent 30.6 g/dl RDW Standard Deviation 52.9 fL RDW Coefficient of Variation 15.5 % Platelet Count 229 K/uL Mean Platelet Volume 10.3 fL Sodium Level 145 mmol/L Potassium Level 4.9 mmol/L Chloride Level 113 mmol/L Carbon Dioxide Level 26 mmol/L Anion Gap 6.0 mmol/L Blood Urea Nitrogen 51 mg/dl Creatinine 1.70 mg/dl Est Creatinine Clear Calc Drug Dose 29.6 ml/min Estimated GFR () 32.2 Estimated GFR (Non- 27.8 BUN/Creatinine Ratio 29.7 Random Glucose 87 mg/dl Calcium Level 8.9 mg/dl (Poppy Herzog ., PA-C) Assessment and Plan 81 y/o female with a history of CAD, [place] in 1998, HTN, h/o PE, COPD, sleep apnea , DM II, gout and GERD who presents s/p left TKA with Dr. Yadav on 05/04 for medical management. -Pain management, DVT prophylaxis, and PT/OT as per primary team -POD #2 Hyperkalemia--improving -Potassium 5.3 on pre-op labs -Placed on low potassium diet, continue to monitor -Potassium 4.9 on 05/06 ?KARL--unknown baseline creatinine -Creatinine 1.5 on pre op labs -Creatinine remains at 1.7 on 05/06 -Hold losartan CAD, [place] 1998 -Continue ASA per primary team H/o anemia--unknown etiology, h/o blood transfusions -Pre op labs show Hgb 10.9 -Hgb 8.9 on 05/06, down from 9.3 on 05/05. MCV normocytic HTN--stable -Hold losartan -Cover with hydralazine 10 mg IV q6h prn SBP >180 H/o PE -Resume Eliquis when okay with primary team COPD -Continue Advair qd DM II, controlled w/o meds--HgbA1c on 04/16/17 was 5.8 -Diet controlled, BSGs controlled here Gout -Continue allopurinol 100 mg PO qd Code Status -Level I, FULL RESUSCITATION STATUS Thank you for this consultation. We will continue to follow. (Poppy Herzog ., JASON) Reviewed: Pt Seen/Exam by Me (Amna Mann MD) History Physician Kettle Coordinator Supervision Note: I interviewed and examined the patient. Discussed with NOEMI Herzog and agree with findings and plan as documented in the note. Any exceptions or clarifications are listed here: Seems to be coughing more than usual tonight and bringing up thick yellow sputum , no blood. Has had a cough now and post-nasal drip x 6 weeks. States she was started on a nasal steroid spray and Zyrtec, doctor thought she had allergies. Sh eis also on Advair at home for COPD VSS, NAD, morbidly obese RRR no mgr scattered exp wheeze and prolonged exp phase ABd +BS soft obese NT ND Ext: left knee in SABI wrap, able to dorsi and plantarflex left foot, no edema rt leg Skin no rashes 81 yo female with Left TKA and other chronic conditions. -LAVERNE-ordered CPAP for here-she has had outpt sleep study and CPAP titration but is still awaiting delivery of home machine--> ok to start tonight and RT aware -give scheduled albuterol nebs for cough and wheeze, continue f/u with PCP and possibly Pulm as outpt -increase Advair to bid dosing, add FLonase to regimen here Documented By: Amna Mann (Amna Mann MD)
[2017-05-06] MEDS: SODIUM CHLORIDE 0.9% 1000ML 1,000 ML IV SCH (11:24)
[2017-05-06] MEDS: TRAMADOL HCL 50 MG TAB PO PRN (11:26)
[2017-05-06 15:47] VITALS: BP 157/67; PULSE 88; TEMP 37; O2SAT 91
[2017-05-06] MEDS ORDERED: ALBUTEROL 0.083% NEBU SOLN 3 ML VIAL INH ONE (18:50)
[2017-05-06] MEDS ORDERED: FLUTICASONE PROPIONATE NA SPR 16 GM BTL ONE (18:50)
[2017-05-06] MEDS: ALBUTEROL 0.083% NEBU SOLN 3 ML VIAL INH SCH (19:45)
[2017-05-06 19:53] VITALS: PULSE 81; O2SAT 96
[2017-05-06] MEDS: ALPRAZOLAM 0.5 MG TAB PO SCH (21:24)
[2017-05-06] MEDS: SENNA 8.6 MG TAB PO SCH (21:25)
[2017-05-06] MEDS: FLUTICASONE/SALMETEROL 250/50 (ADVAIR) 14 PUFF/1 INHALER INH SCH (21:26)
[2017-05-06 22:21] VITALS: PULSE 81; O2SAT 95
[2017-05-06 22:58] VITALS: BP 156/79; PULSE 85; TEMP 36.3; O2SAT 96
[2017-05-07] MEDS: TRAMADOL HCL 50 MG TAB PO PRN ×3 (00:31→10:07)
[2017-05-07] MEDS: ACETAMINOPHEN 500 MG TAB PO SCH (05:18)
[2017-05-07 06:15] LABS: HEMATOCRIT 31.5 % (37-47); MEAN CELL VOLUME 93.2 fL (80-100); MEAN CORPUSCULAR HEMOGLOBIN 28.4 pg (25-34); MEAN CORPUSCULAR HGB CONC 30.5 g/dl (32-36); MEAN PLATELET VOLUME 10.3 fL (7.4-10.4); PLATELET COUNT 286 K/uL (130-400); RED BLOOD COUNT 3.38 M/uL (4.2-5.4); WHITE BLOOD COUNT 12.67 K/uL (4.8-10.8)
[2017-05-07 06:27] VITALS: BP 149/81; PULSE 79; TEMP 36.9; O2SAT 94
[2017-05-07 06:41] LABS: BUN/CREATININE RATIO 26.2 (10-20); CALCIUM 9.7 mg/dl (8.5-10.1); CREATININE 1.7 mg/dl (0.60-1.20); POTASSIUM 4.7 mmol/L (3.5-5.1)
[2017-05-07 07:03] VITALS: PULSE 80; O2SAT 98
[2017-05-07] MEDS: ALBUTEROL 0.083% NEBU SOLN 3 ML VIAL INH SCH (07:03)
--- NOTE | 2017-05-07 07:31 | Orthopedic Progress Note ---
Orthopedic Progress Note Date of Service May 07, 2017. Subjective Post OP Day: 3 Reports: feeling well, pain controlled w PO medications, Denies: complaints, chest pain, SOB, nausea / vomiting, light headedness, calf pain Objective calves soft nontender, N/V intact, capillary refill less than 2 sec., dressing C /D/I, A&O x3, toes mobile Date Time Temp Pulse Resp B/P (MAP) Pulse Ox O2 Delivery O2 Flow Rate FiO2 05/07/17 07:03 80 16 98 Nasal Cannula 2.0 05/07/17 06:27 36.9 79 16 149/81 (103) 94 Nasal Cannula 2.0 05/06/17 23:39 CPAP 05/06/17 22:58 36.3 85 16 156/79 (104) 96 CPAP 05/06/17 22:21 81 95 2.0 05/06/17 19:53 81 16 96 Nasal Cannula 2.0 05/06/17 15:47 37.0 88 18 157/67 (97) 91 Room Air 05/06/17 15:25 Room Air 05/06/17 08:58 92 Room Air 05/06/17 08:30 Room Air 05/06/17 08:00 36.4 83 18 158/74 (102) 92 Room Air Laboratory Results 24 Hours: Test 05/07/17 05:35 Hematocrit 31.5 % Hemoglobin 9.6 g/dL Assessment & Plan Assessment: POD 3 s/p Left TKA h/o CAD, [place] in 1998 HTN h/o PE- Eliquis, ASA 81mg daily COPD Sleep Apnea DM T2 Gout GERD Plan: PT/OT Planning for swing bed at [facility] upon DC, will d/c later this am DVT Prophylaxis - Restart Eliquis tomorrow. Will give one dose of Lovenox this AM. BID ASA until Eliquis starts tomorrow, the once daily. Discharge Planning Discharge Planning: rehab hospital Pain Management: PO Tylenol, Oxy IR DVT Prophylaxis: TEDs, ASA, other (Eliquis) Therapy: Physical Therapy
[2017-05-07] MEDS ORDERED: ULT50X PO (07:41)
[2017-05-07] MEDS ORDERED: ONDA8TAB6 PO (07:41)
[2017-05-07] MEDS ORDERED: RXC5 PO (07:41)
[2017-05-07] MEDS ORDERED: ACET-24 PO (07:41)
[2017-05-07] MEDS ORDERED: DXY100 PO (07:43)
[2017-05-07] MEDS: FERROUS GLUCONATE 324 MG TAB PO SCH (08:15)
[2017-05-07] MEDS: OXYCODONE HCL IR 5 MG TAB (IMMEDIATE RELEASE) PO PRN (08:15)
[2017-05-07] MEDS ORDERED: DOXYCYCLINE HYCLATE 100 MG CAP PO SCH (09:00)
[2017-05-07] MEDS ORDERED: FLUTICASONE PROPIONATE NA SPR 16 GM BTL SCH (09:00)
[2017-05-07] MEDS ORDERED: ASPIRIN 81 MG ECTAB PO SCH (09:00)
[2017-05-07] MEDS: MAGNESIUM OXIDE 400 MG TAB PO SCH (09:32)
[2017-05-07] MEDS: DOCUSATE SODIUM 100 MG CAP PO SCH (09:33)
[2017-05-07] MEDS: CETIRIZINE HCL 10 MG TAB PO SCH (09:34)
[2017-05-07] MEDS: ALLOPURINOL 100 MG TAB PO SCH (09:34)
[2017-05-07] MEDS: MULTIVITAMIN TAB PO SCH (09:35)
[2017-05-07] MEDS: PANTOprazole SOD 40 MG TAB PO SCH (09:36)
[2017-05-07] MEDS: APIXABAN 2.5 MG TAB PO SCH (09:36)
[2017-05-07] MEDS: FLUTICASONE/SALMETEROL 250/50 (ADVAIR) 14 PUFF/1 INHALER INH SCH (09:38)
[2017-05-07 09:47] VITALS: BP 149/81; PULSE 80; TEMP 36.9; O2SAT 98
--- NOTE | 2017-05-10 11:41 | DISCHARGE SUMMARY ---
DISCHARGE DIAGNOSIS: Degenerative joint disease left knee. SECONDARY DIAGNOSES: Coronary artery disease status post myocardial infarction in 1998, hypertension, history of pulmonary embolism, chronic obstructive pulmonary disease, sleep apnea, diabetes mellitus, gastroesophageal reflux disease, obesity. CONSULTS: Dr. Gregg. COMPLICATIONS: None. PROCEDURES: Left total knee arthroplasty performed by Dr. Yadav on 05/04/2017. BRIEF HISTORY: As dictated in the history and physical. HOSPITAL SUMMARY: The patient was admitted on the above-noted date and had the above-noted surgery performed which she tolerated well. Dr. Gregg was consulted postoperatively for medical management during her stay. On her first postoperative day, she was feeling well and had no complaints of chest pain, shortness of breath, nausea, vomiting, lightheadedness or calf pain. She had somewhat of a rough night and unable to sleep. Pain was controlled currently and she was hoping to go to [facility] swing bed for PT upon discharge. Calves were soft and nontender. Neurovascularly intact. Dressings clean, dry and intact. Toes were mobile. Vital signs were stable and she was afebrile. Systolic blood pressure fluctuated which was managed per medicine service. Hemoglobin was 9.3 and she was started on physical therapy protocol and continued on DVT prophylaxis and pain management. Plans were to give aspirin b.i.d. for 1 day and also Lovenox for the first postoperative day and then the patient was going to restart her Eliquis the following day twice daily. The patient preoperatively was noted to be hyperkalemic at 5.3; however, first postoperative day, she had already dropped down to 5.1 and was otherwise treated accordingly per medicine service. By her second postoperative day, she was feeling well and pain was controlled. Calves were soft, nontender, neurovascularly intact. Dressings clean, dry and intact. Toes were mobile. Hemoglobin was 8.9. Vital signs were stable, she was afebrile, and she was continued on her PT protocol and pain management. The rest of the stay was essentially uneventful, and by 05/07/2017, she was feeling well and pain was controlled. She had no complaints. Calves were soft, nontender, neurovascularly intact. Dressings were clean, dry and intact. Toes were mobile. Vital signs were stable and she was afebrile. Hemoglobin was 9.6. She was progressing with her physical therapy. Dr. Mann who had seeing the patient near the end of her stay with Poppy Herzog had noted that the patient had been complaining of a slight cough and had been started on some RT and felt that with bringing up some yellow sputum, she was started on doxycycline 100 mg p.o. b.i.d. for 7 days. She continued to remain afebrile during her stay and otherwise was remaining stable and it was felt she could be transferred to [facility] transitional care unit on 05/07/2017. For further review, please see chart. LABORATORY AND X-RAY DATA: As per chart. DISCHARGE INSTRUCTIONS: The patient was discharged to [facility] on 05/07/2017. DIET: Diabetic. ACTIVITY: Weightbearing as tolerated left lower extremity. The patient to have a physical therapy protocol and follow TKA protocol. The patient to be up ad barak and follow discharge instructions as noted. The patient to follow up with Dr. Yadav in 2 weeks, call for appointment if one has not been made for you. DISCHARGE MEDICATIONS: Acetaminophen 1000 mg p.o. q. 8 hours, doxycycline 100 mg p.o. b.i.d. for 7 days, Zofran 8 mg p.o. q. 8 hours p.r.n. nausea, oxycodone 5-10 mg p.o. q. 4 hours p.r.n., tramadol 50-100 mg p.o. q. 4 hours p.r.n., and resume home meds as listed in the continue medications section. Stop taking [place].
== END 2017-05-07 10:45 | DRG 470 ==
LOC: C.ACU 09:29 → C.3E 10:00 → ENRESERV 12:53
PROVIDERS: ADMIT Orthopaedic Surgery; ATTEND Orthopaedic Surgery
PROC: 0SRD0J9 Replacement of Left Knee Joint with Synthetic Substitute, Cemented, Open Approach (ICD-10-PCS; principal; 2017-05-04 10:15)
DX: M17.12 Unilateral primary osteoarthritis, left knee (principal); Z68.42 Body mass index [BMI] 45.0-49.9, adult; E89.0 Postprocedural hypothyroidism; I25.10 Atherosclerotic heart disease of native coronary artery without angina pectoris; I25.2 Old myocardial infarction; I10 Essential (primary) hypertension; J44.9 Chronic obstructive pulmonary disease, unspecified; E11.9 Type 2 diabetes mellitus without complications; K21.9 Gastro-esophageal reflux disease without esophagitis; E66.01 Morbid (severe) obesity due to excess calories; M10.9 Gout, unspecified; G47.33 Obstructive sleep apnea (adult) (pediatric); E87.5 Hyperkalemia; Z87.891 Personal history of nicotine dependence; Z88.8 Allergy status to other drugs, medicaments and biological substances; Z79.01 Long term (current) use of anticoagulants; Z79.82 Long term (current) use of aspirin; Z79.899 Other long term (current) drug therapy; Z98.51 Tubal ligation status; Z90.710 Acquired absence of both cervix and uterus; Z90.49 Acquired absence of other specified parts of digestive tract; Z96.651 Presence of right artificial knee joint; Z86.711 Personal history of pulmonary embolism